=== PATIENT | male | born 1955 | race Caucasian/White ===

== ENCOUNTER 2018-02-17 02:20 | Inpatient (IN) ==
[2018-02-17] MEDS ORDERED: predniSONE 20 MG TABLET PO ONE (02:23)
[2018-02-17] MEDS ORDERED: Ipratropium/Albuterol Neb 3 ML IH ONE (02:23)
--- NOTE | 2018-02-17 02:26 | Emergency Department Note ---
Disposition Clinical Impression: Acute exacerbation of chronic obstructive airways disease Pneumonia Qualifiers: Pneumonia type: due to unspecified organism Laterality: bilateral Lung location : unspecified part of lung Qualified Code(s): J18.9 - Pneumonia, unspecified organism Disposition: Admitted As Inpatient Condition: Fair [facility]errals: [facility] [Non-Partnered Physician] - Forms: ED Satisfaction Letter Time of Disposition: 03:22 SOB HPI - General Chief Complaint: ED Shortness of Breath/Dyspnea Stated Complaint: difficulty in breathing Time Seen by Provider: 02/17/18 02:20 Source: patient Mode of arrival: ambulatory Limitations: no limitations Nursing Notes Reviewed: Yes Vital Signs Reviewed: Yes - History of Present Illness 62-year-old smoker arrives to the emergency department with acute shortness of breath. The patient states this started roughly 1 day ago and is progressively worsened. The family member and patient both state that he is unable to catch his breath at this time. The patient is in mild to moderate respiratory distress. He is 90% on 2 L nasal cannula and using accessory muscles. The patient is lucid and answering questions appropriate. He denies any chest pain. - Related Data Home Medications Medication Instructions Recorded Confirmed Albuterol Neb [Proventil Neb] 2.5 mg IH Q4HR 10/23/15 10/23/15 Albuterol Sulfate [Albuterol 1 - 2 puff IH Q6HR 10/23/15 10/23/15 Inhaler] Aspirin Enteric Coated [Aspirin EC] 81 mg PO DAILY 10/23/15 10/23/15 Atorvastatin [Lipitor] 40 mg PO DAILY 10/23/15 10/23/15 Cholecalciferol (Vitamin D3) 1,000 unit PO DAILY 10/23/15 10/23/15 [Vitamin D3] Gabapentin [Neurontin] 300 mg PO QID 10/23/15 10/23/15 Methocarbamol [Robaxin] 750 mg PO BID 10/23/15 10/23/15 Metoprolol XL (24 HR) Succ [Toprol 25 mg PO DAILY 10/23/15 10/23/15 Xl] Pantoprazole Sodium [Protonix] 40 mg PO DAILY 10/23/15 10/23/15 Prazosin HCl [Minipress] 2 mg PO TID 10/23/15 10/23/15 Sertraline [Zoloft] 100 mg PO DAILY 10/23/15 10/23/15 Tiotropium [Spiriva] 18 mcg IH DAILY 10/23/15 10/23/15 hydrOXYzine pamoate [HydrOXYzine 50 mg PO QID 10/23/15 10/23/15 Pamoate] Previous Rx's Medication Instructions Recorded Clopidogrel [Plavix] 75 mg PO DAILY #30 tablet 10/25/15 HYDROcodone/Acet 5/325 mg [[place] 1 tab PO Q6HR PRN #20 tablet 10/25/15 5-325 mg] Nicotine Patch [Nicoderm] 21 mg TD DAILY #60 patch.td24 MDD 1 10/25/15 Allergies Allergy/AdvReac Type Severity Reaction Status Date / Time morphine Allergy See Verified 09/27/15 14:41 Comments All systems ED: reviewed and negative except as stated. Constitutional: Denies: fever, chills, weakness ENT ED: Denies: dysphagia Cardiovascular: Reports: dyspnea on exertion. Denies: chest pain, edema, syncope Respiratory: Reports: dyspnea. Denies: cough, wheezes, sputum production Gastrointestinal: Denies: abdominal pain, nausea, vomiting Genitourinary: Denies: urgency, dysuria Musculoskeletal: Denies: back pain Integumentary: Denies: rash Neurological: Denies: headache Past Medical History - Past Medical History Attestation: Yes The following information was validated with the patient. Source: patient, old records reviewed Medical history: Reports: CHF, COPD, diabetes, hyperlipidemia, hypertension, myocardial infarction, peripheral artery disease Surgical history: Reports: LE Bypass, vascular surgery, other Psychiatric history: Reports: no psych history - Social History Smoking Status: Current every day smoker Smokeless Tobacco Status: No Alcohol use: Reports: none Drug use: Reports: none Physical Exam - General Limitations: no limitations General appearance: alert, in distress (Respiratory) - Head Head exam: atraumatic, normocephalic, normal inspection - Eye Eye exam: Present: normal appearance, PERRL, EOMI - ENT ENT exam: normal exam, normal oropharynx, mucous membranes moist - Neck Neck exam: Present: normal inspection, full ROM, trachea midline - Chest Chest inspection: Present: normal inspection, symmetric chest wall rise - Respiratory Respiratory exam: Present: other (Poor air movement in lung perez) - Cardiovascular Cardiovascular exam: Present: regular rate, normal rhythm, normal heart sounds - Extremities Exam Extremities exam: Present: normal inspection, full ROM. Absent: tenderness, pedal edema - Neurological Exam Neurological exam: Present: alert, oriented X3 - Skin Skin exam: Present: warm, dry, intact, normal color Course Vital Signs Temperature 98.7 F 02/17/18 02:23 Pulse Rate 108 02/17/18 02:23 Respiratory Rate 24 02/17/18 02:23 Blood Pressure 155/71 02/17/18 02:23 O2 Sat by Pulse Oximetry 91 02/17/18 02:23 Temperature 98.7 F 02/17/18 02:23 Pulse Rate 128 02/17/18 03:21 Respiratory Rate 28 02/17/18 03:21 Blood Pressure 122/79 02/17/18 03:21 O2 Sat by Pulse Oximetry 92 02/17/18 03:21 Oxygen Delivery Oxygen Delivery Aerosol Mask Shortness of Breath/Dyspnea - MDM Narrative Medical decision making narrative: Patient's work-up demonstrates findings consistent with COPD exacerbation as well as pneumonia daily required. The patient was administered azithromycin and rocephin. He was given 3 duonebs and 3 more albuterol nebs, steroids. The patient states he is feeling much better at this time. The patient is still having deep respirations but has continued to improve in the ED. The patient will be admitted to the ED at this time. No further questions at this time. Accepted by Dr. Wilson. - Lab Data Lab results reviewed: Yes I reviewed the patient's lab results. Result diagrams: 02/17/18 02:22 02/17/18 02:22 Lab Results 02/17/18 02/17/18 Range/Units 02:22 02:22 WBC 17.4 H (4.3-11.1) K/mcL RBC 4.55 (4.19-5.50) M/mcL Hgb 14.6 (12.9-16.9) g/dL Hct 42.1 (37.5-50.1) % MCV 92.5 (83.0-100.0) fL MCH 32.1 (28.0-33.3) pg MCHC 34.7 (31.6-35.5) g/dL RDW 12.2 (11.5-14.5) % Plt Count 256 (140-400) K/mcL MPV 9.0 L (9.4-12.4) fL Immature Gran % 0.2 (0-4) % Seg Neutrophils % 87.0 % Lymphocytes % 3.8 % Monocytes % 8.7 % Eosinophils % 0.1 % Basophils % 0.2 % Neutrophils # 15.1 H (1.6-8.9) K/mcL Lymphocytes # 0.7 (0.6-4.6) K/mcL Monocytes # 1.5 H (0.0-1.3) K/mcL Eosinophils # 0.0 (0.0-0.6) K/mcL Basophils # 0.0 (0.0-0.2) K/mcL Sodium 132 L (136-145) mEq/L Potassium 4.1 (3.5-5.1) mEq/L Chloride 98 (98-107) mEq/L Carbon Dioxide 26 (23-29) mEq/L BUN 11 (8-23) mg/dL Creatinine 0.81 (0.70-1.30) mg/dL Est GFR ( Amer) > 60 (> 60) Est GFR (Non-Af Amer) > 60 (> 60) BUN/Creatinine Ratio 14 (6-26) Glucose 145 H (70-105) mg/dL Calculated Osmolality 276 L (280-300) Calcium 9.2 (8.6-10.3) mg/dL Troponin I 0.03 (< 0.04) ng/mL - EKG Data EKG attestation: Yes I reviewed and interpreted this EKG. EKG results narrative: Heart rate 106 beats for minute. Sinus tachycardia. There is a intermittent QRS size change noted on rhythm strip. No ST elevation or ST depression noted. Concern for possible electrical alternans. Attestation Statement - Attestation Attestation: I, Nacho Miranda DO, examined this patient [id number] and my medical decision-making was reviewed with Holly Gregory DO, Resident Physician. I agree with the documented findings, disposition and treatment plan as described except to the extent set forth below. Please see my progress notes for details.
--- NOTE | 2018-02-17 02:39 | Emergency Department Note ---
Disposition Clinical Impression: Acute exacerbation of chronic obstructive airways disease Pneumonia Qualifiers: Pneumonia type: due to unspecified organism Laterality: bilateral Lung location : unspecified part of lung Qualified Code(s): J18.9 - Pneumonia, unspecified organism Disposition: Admitted As Inpatient Condition: Fair Time of Disposition: 03:53 General Adult HPI - General Chief complaint: ED Shortness of Breath/Dyspnea Stated complaint: difficulty in breathing Time Seen by Provider: 02/17/18 02:20 Source: patient Mode of arrival: ambulatory Limitations: no limitations - History of Present Illness Pain Scale: 0 - Related Data Home Medications Medication Instructions Recorded Confirmed Albuterol Neb [Proventil Neb] 2.5 mg IH Q4HR 10/23/15 10/23/15 Albuterol Sulfate [Albuterol 1 - 2 puff IH Q6HR 10/23/15 10/23/15 Inhaler] Aspirin Enteric Coated [Aspirin EC] 81 mg PO DAILY 10/23/15 10/23/15 Atorvastatin [Lipitor] 40 mg PO DAILY 10/23/15 10/23/15 Cholecalciferol (Vitamin D3) 1,000 unit PO DAILY 10/23/15 10/23/15 [Vitamin D3] Gabapentin [Neurontin] 300 mg PO QID 10/23/15 10/23/15 Methocarbamol [Robaxin] 750 mg PO BID 10/23/15 10/23/15 Metoprolol XL (24 HR) Succ [Toprol 25 mg PO DAILY 10/23/15 10/23/15 Xl] Pantoprazole Sodium [Protonix] 40 mg PO DAILY 10/23/15 10/23/15 Prazosin HCl [Minipress] 2 mg PO TID 10/23/15 10/23/15 Sertraline [Zoloft] 100 mg PO DAILY 10/23/15 10/23/15 Tiotropium [Spiriva] 18 mcg IH DAILY 10/23/15 10/23/15 hydrOXYzine pamoate [HydrOXYzine 50 mg PO QID 10/23/15 10/23/15 Pamoate] Previous Rx's Medication Instructions Recorded Clopidogrel [Plavix] 75 mg PO DAILY #30 tablet 10/25/15 HYDROcodone/Acet 5/325 mg [[place] 1 tab PO Q6HR PRN #20 tablet 10/25/15 5-325 mg] Nicotine Patch [Nicoderm] 21 mg TD DAILY #60 patch.td24 MDD 1 10/25/15 Allergies Allergy/AdvReac Type Severity Reaction Status Date / Time morphine Allergy See Verified 09/27/15 14:41 Comments Constitutional: Denies: fever, chills, weakness ENT ED: Denies: dysphagia Cardiovascular: Reports: dyspnea on exertion. Denies: chest pain, edema, syncope Respiratory: Reports: dyspnea. Denies: cough, wheezes, sputum production Gastrointestinal: Denies: abdominal pain, nausea, vomiting Genitourinary: Denies: urgency, dysuria Musculoskeletal: Denies: back pain Integumentary: Denies: rash Neurological: Denies: headache Past Medical History - Past Medical History Medical history: Reports: CHF, COPD, diabetes, hyperlipidemia, hypertension, myocardial infarction, peripheral artery disease Surgical history: Reports: LE Bypass, vascular surgery, other Psychiatric history: Reports: no psych history - Social History Smoking Status: Current every day smoker Smokeless Tobacco Status: No Alcohol use: Reports: none Drug use: Reports: none Physical Exam - General Limitations: no limitations General appearance: alert, in distress (Respiratory) Course Vital Signs Temperature 98.7 F 02/17/18 02:23 Pulse Rate 108 02/17/18 02:23 Respiratory Rate 24 02/17/18 02:23 Blood Pressure 155/71 02/17/18 02:23 O2 Sat by Pulse Oximetry 91 02/17/18 02:23 Temperature 98.7 F 02/17/18 02:23 Pulse Rate 128 02/17/18 03:21 Respiratory Rate 28 02/17/18 03:21 Blood Pressure 122/79 02/17/18 03:21 O2 Sat by Pulse Oximetry 92 02/17/18 03:21 Oxygen Delivery Oxygen Delivery Aerosol Mask Medical Decision Making - Lab Data Result diagrams: 02/17/18 02:22 02/17/18 02:22 Lab Results 02/17/18 02/17/18 Range/Units 02:22 02:22 WBC 17.4 H (4.3-11.1) K/mcL RBC 4.55 (4.19-5.50) M/mcL Hgb 14.6 (12.9-16.9) g/dL Hct 42.1 (37.5-50.1) % MCV 92.5 (83.0-100.0) fL MCH 32.1 (28.0-33.3) pg MCHC 34.7 (31.6-35.5) g/dL RDW 12.2 (11.5-14.5) % Plt Count 256 (140-400) K/mcL MPV 9.0 L (9.4-12.4) fL Immature Gran % 0.2 (0-4) % Seg Neutrophils % 87.0 % Lymphocytes % 3.8 % Monocytes % 8.7 % Eosinophils % 0.1 % Basophils % 0.2 % Neutrophils # 15.1 H (1.6-8.9) K/mcL Lymphocytes # 0.7 (0.6-4.6) K/mcL Monocytes # 1.5 H (0.0-1.3) K/mcL Eosinophils # 0.0 (0.0-0.6) K/mcL Basophils # 0.0 (0.0-0.2) K/mcL Sodium 132 L (136-145) mEq/L Potassium 4.1 (3.5-5.1) mEq/L Chloride 98 (98-107) mEq/L Carbon Dioxide 26 (23-29) mEq/L BUN 11 (8-23) mg/dL Creatinine 0.81 (0.70-1.30) mg/dL Est GFR ( Amer) > 60 (> 60) Est GFR (Non-Af Amer) > 60 (> 60) BUN/Creatinine Ratio 14 (6-26) Glucose 145 H (70-105) mg/dL Calculated Osmolality 276 L (280-300) Calcium 9.2 (8.6-10.3) mg/dL Troponin I 0.03 (< 0.04) ng/mL Attestation Statement - Attestation Attestation: I, Nacho Miranda DO, examined this patient [id number] and my medical decision-making was reviewed with Holly Gregory DO, Resident Physician. I agree with the documented findings, disposition and treatment plan as described except to the extent set forth below. Please see my progress notes for details. 61-year-old male presents emergency room for evaluation of shortness of breath. Her last 24 hours patient is been attempted to treat his breathing issues at home. He denies any specific history of COPD or emphysema. He typically has all his medical care provider at the [facility]. Currently is denying chest pain, fevers chills, nausea vomiting or diarrhea, headache or vision change. Denies any recent medication changes. He has not had any productive cough or sputum. Denies any fevers or chills. Patient is alert he has questions appropriately but he does appear to be in some significant respiratory distress. Patient is not moving very much air on initial presentation as pulse ox was 90% on 2 L of oxygen. He typically does not use oxygen at home. Immediately breathing treatments and steroids will be provided along with screening evaluation a chest x-ray EKG labs including CBC chemistry and troponin. Disposition will be determined once the full workup and treatment course have been completed. Patient may require admission secondary to the acute nature of the symptoms as well as the escalated presentation on arrival. His physical exam is otherwise unremarkable EKG shows sinus rhythm heart is regular with no murmurs lungs are significantly diminished with no audible wheezing. Abdomen is soft nontender nondistended with no guarding no rigidity no peritoneal symptoms. No signs of edema in the extremities. Patient does have a significant smoking history. Suspicion is this is COPD exacerbation with the weather changes. See detailed documentation of the physical exam, medical intervention, medical decision-making and disposition in the resident physician's note. No critical care provider the patient's treatment course at this time. [id number] Patient has negative chest x-ray for acute etiology outside the suspicion for pneumonia. Antibiotics and cultures were ordered. Repeat dosages of breathing treatments were given. Patient will be admitted. Hospitalist Dr. Wilson reviewed the case and no other recommendations or concerns. Patient is otherwise clinically stable. Completion of the treatment course will be established and resulted in the hospital setting.
[2018-02-17 02:41] LABS: Basophils % 0.2 %; Eosinophils % 0.1 %; Hematocrit 42.1 % (37.5-50.1); Hemoglobin 14.6 g/dL (12.9-16.9); Immature Granulocytes % 0.2 % (0-4); Lymphocytes # 0.7 K/mcL (0.6-4.6); Lymphocytes % 3.8 %; Mean Corpuscular HGB Conc 34.7 g/dL (31.6-35.5); Mean Corpuscular Hemoglobin 32.1 pg (28.0-33.3); Mean Corpuscular Volume 92.5 fL (83.0-100.0); Monocytes # 1.5 K/mcL (0.0-1.3); Monocytes % 8.7 %; Neutrophils # 15.1 K/mcL (1.6-8.9); Platelet Count 256 K/mcL (140-400); Red Blood Count 4.55 M/mcL (4.19-5.50); Red Cell Distribution Width 12.2 % (11.5-14.5)
[2018-02-17] MEDS ORDERED: Albuterol 2.5 MG/3 ML NEBULIZER IH ONE (02:57)
[2018-02-17] MEDS ORDERED: cefTRIAXone 1,000 MG in Water for inj. (sterile) 20 ML 10 ML IVP ONE (03:01)
[2018-02-17] MEDS ORDERED: Azithromycin 500 MG in D5% in Water 250 ML IVPB ONE (03:01)
[2018-02-17 03:02] LABS: BUN/Creatinine Ratio 14 (6-26); Blood Urea Nitrogen 11 mg/dL (8-23); Calcium 9.2 mg/dL (8.6-10.3); Carbon Dioxide 26 mEq/L (23-29); Chloride 98 mEq/L (98-107); Glucose 145 mg/dL (70-105); Osmolality,Calculated 276 (280-300); Potassium 4.1 mEq/L (3.5-5.1); Sodium 132 mEq/L (136-145); eGFR For Non-African Americans > 60 (> 60)
[2018-02-17 03:03] LABS: Troponin I 0.03 ng/mL (< 0.04)
[2018-02-17] MEDS ORDERED: Acetaminophen 325 MG TABLET PO PRN (03:59)
[2018-02-17] MEDS ORDERED: Naloxone 0.4 MG/ML INJ IVP PRN (03:59)
[2018-02-17] MEDS ORDERED: traMADol 50 MG TABLET PO PRN (03:59)
[2018-02-17] MEDS ORDERED: 0.9 % Sodium Chloride 1,000 ML IVC SCH ×2 (04:00→06:16)
[2018-02-17] MEDS: Ipratropium/Albuterol Neb 3 ML IH SCH ×4 (04:39→22:27)
[2018-02-17] MEDS: MethylPREDNISolone 40 MG/ML VIAL IVP SCH ×4 (05:08→23:04)
--- NOTE | 2018-02-17 05:53 | Internal Med History&Physical ---
Date of Encounter: 02/17/18 Time of Encounter: 05:47 Internal Medicine - H&P: HPI Chief complaint: Dyspnea History of present illness: Mr. Childs is a 62 year old male with past medical history of CHF, undocumented COPD, diabetes, hyperlipidemia, hypertension, [place] and peripheral artery disease who presented to the ED with a 2 day history of difficulty breathing. Patient states that 2 days ago he started having difficulty breathing described as inability to get air into his lungs. Symptoms are associated with episodes of fever and chills and a cough which became productive the following day with yellowish sputum. Patient has a significant smoking history of 30 pack years and reports that he used to be on home oxygen in the past but was eventually weaned off. He denies any sick contacts, chest pain, nausea, vomiting, diarrhea, or abdominal pain. Further denies any bilateral or unilateral lower extremity edema, orthopnea or paroxysmal nocturnal dyspnea. Patient denies any recent travel. Patient was given 3 rounds of DuoNeb's and 3 more albuterol nebs in addition steroids in the ED with improvement in his breathing. Chest x-ray showed diffuse prominence of interstitial markings reflecting possible edema, pneumonia or an atypical or viral pneumonia. Past Med Surg Social Fam HX - Past Medical History Medical history: CHF, COPD, diabetes, hyperlipidemia, hypertension, myocardial infarction, peripheral artery disease Psychiatric history: no psych history - Past Surgical History Surgical History: LE Bypass, vascular surgery, other Additional surgical history: THROMBECTOMY RLE - Social History Smoking Status: Current every day smoker Packs per day: 1 Smokeless Tobacco Status: No Alcohol use: none Drug use: none - Family History Mother Adopted: [place]: Christel Sullivan Living Status: Age at : 84 Cause of : CHF Hx Family Cardiac Disorders: Yes (CHF) Hx Family Respiratory Disorders: Yes (COPD) Father Adopted: [place]: Aftab Childs Living Status: Age at : 71 Cause of : CHF Hx Family Cardiac Disorders: Yes (CHF) Hx Family Respiratory Disorders: Yes (Emphysema) Internal Medicine - H&P: Meds Albuterol Neb [Proventil Neb] 2.5 mg IH Q4HR 10/23/15 [History] Albuterol Sulfate [Albuterol Inhaler] 1 - 2 puff IH Q6HR 10/23/15 [History] Aspirin Enteric Coated [Aspirin EC] 81 mg PO DAILY 10/23/15 [History] Atorvastatin [Lipitor] 40 mg PO DAILY 10/23/15 [History] Cholecalciferol (Vitamin D3) [Vitamin D3] 1,000 unit PO DAILY 10/23/15 [History] Gabapentin [Neurontin] 300 mg PO QID 10/23/15 [History] Methocarbamol [Robaxin] 750 mg PO BID 10/23/15 [History] Metoprolol XL (24 HR) Succ [Toprol Xl] 25 mg PO DAILY 10/23/15 [History] Pantoprazole Sodium [Protonix] 40 mg PO DAILY 10/23/15 [History] Prazosin HCl [Minipress] 2 mg PO TID 10/23/15 [History] Sertraline [Zoloft] 100 mg PO DAILY 10/23/15 [History] Tiotropium [Spiriva] 18 mcg IH DAILY 10/23/15 [History] hydrOXYzine pamoate [HydrOXYzine Pamoate] 50 mg PO QID 10/23/15 [History] Clopidogrel [Plavix] 75 mg PO DAILY #30 tablet 10/25/15 [Rx] HYDROcodone/Acet 5/325 mg [[place] 5-325 mg] 1 tab PO Q6HR PRN #20 tablet [Rx] Nicotine Patch [Nicoderm] 21 mg TD DAILY #60 patch.td24 MDD 1 10/25/15 [Rx] 3 Allergy/AdvReac Type Severity Reaction Status Date / Time morphine Allergy See Verified 09/27/15 14:41 Comments All Systems PM: A 10-system review of systems was performed and is negative for pertinent findings except as documented above in the HPI. - Constitutional Constitutional: no chills, no fever(s), no night sweats - EENT Eyes: no change in vision, no discharge, no pain, no photophobia Ears: no ear discharge, no ear pain, no tinnitus Nose, mouth and throat: no dysphagia, no nasal discharge, no neck pain, no sore throat - Cardiovascular Cardiovascular ROS IM: no chest pain, no diaphoresis, no dyspnea, no lightheadedness, no palpitations, no syncope - Respiratory Respiratory: no cough, no dyspnea, no wheezing, no excessive phlegm production - Gastrointestinal Gastrointestinal: no abdominal pain, no diarrhea, no hematemesis, no hematochezia, no melena, no nausea, no vomiting - Musculoskeletal Musculoskeletal ROS IM: no numbness, no tingling - Integumentary Integumentary IM: no rash, no unusual bruising - Neurological Neurological ROS: no confusion, no convulsions, no focal weakness, no numbness, no tingling, no tremor(s) - Hematologic/Lymphatic Hematologic/Lymphatic: no easy bruising - Constitutional Vitals: Temp Pulse Resp BP Pulse Ox 98.1 F 118 18 116/68 91 02/17/18 03:59 02/17/18 03:59 02/17/18 03:59 02/17/18 03:59 02/17/18 03:59 Exam: General: Alert and oriented 3. Lying in bed. Patient was asleep however was using accessory muscles to breathe. Was able to speak in complete sentences Skin:Normal color, no rash, no lesions. HEENT:EOM, pupils equal, round and reactive. Cardiovascular:Normal S1 & S2, no rubs, murmurs or gallops. No JVD. Pulse regular. Lungs: Diminished breath sounds throughout, no wheezes or crackles. Abdomen:Soft, non-tender, no rigidity. Extremities:No deformity, no edema or tenderness, no joint swelling or clubbing. Neurological:Normal cognition and motor skills. Pulses:Carotid and radial pulses normal +2. Rest of the physical exam is non contributory Internal Med - H&P Results - Labs CBC & Chem 7: 02/17/18 02:22 02/17/18 02:22 - Assessment and plan (1) Dyspnea Current Visit: Yes Status: Acute Assessment and plan: Patient presents with worsening dyspnea over the past 2 days associated with cough that is becoming more productive and fever and chills. Found to have an elevated white count on laboratory findings. Per ED patient was wheezing and had significant improvement after receiving breathing treatments in addition to steroids. Given his smoking history, though undocumented, patient may have an exacerbation of an underlying COPD secondary to pneumonia. Patient currently stable from a respiratory standpoint though I do not feel he is at baseline. Would recommend pulmonary consult in the morning. We will continue current breathing treatments and antibiotics, steroids. Qualifiers: Dyspnea type: acute respiratory distress Qualified Code(s): R06.03 - Acute respiratory distress (2) Pneumonia Current Visit: Yes Status: Acute Assessment and plan: Pneumonia likely community-acquired versus atypical with an elevated white blood cell count. Please see radiographic findings. Patient not currently septic. We will continue Rocephin and azithromycin. We will obtain sputum culture, Legionella and strep pneumo urinary antigen. Pulmonary consult Qualifiers: Pneumonia type: due to unspecified organism Laterality: bilateral Lung location: unspecified part of lung Qualified Code(s): J18.9 - Pneumonia, unspecified organism (3) History of CHF (congestive heart failure) Current Visit: No Status: Chronic Assessment and plan: Reported history of congestive heart failure however there is no echocardiogram in his records to verify the diagnosis or type. At this time the patient does not seem volume overloaded. We will monitor. Resume home medications once verified. (4) Diabetes Current Visit: Yes Status: Acute Assessment and plan: Reported history of diabetes. We will start patient on sliding scale insulin with blood glucose checks Qualifiers: Diabetes mellitus type: type 2 Qualified Code(s): E11.9 - Type 2 diabetes mellitus without complications (5) Hyponatremia Current Visit: Yes Status: Acute Assessment and plan: Mild hyponatremia. To administer normal saline. We will reassess in the morning. (6) Peripheral vascular disease Current Visit: Yes Status: Acute Assessment and plan: Patient reports he is on aspirin and Plavix, however cannot verify his dose of Plavix. We will resume once we have the correct dose. - Time Spent With Patient Total time spent is greater than 50% in coordination of care (as documented) at patient's floor/unit and/or counseling patient:
[2018-02-17] MEDS ORDERED: *HR* Dextrose 50 % in Water (Syg) 50 ML SYRINGE IVP PRN (06:04)
[2018-02-17] MEDS ORDERED: Dextrose Gel 15 GM/37.5 ML TUBE PO PRN ×2 (06:04)
[2018-02-17] MEDS ORDERED: D5% in Water 1,000 ML IVC PRN (06:04)
[2018-02-17] MEDS ORDERED: Insulin LISPRO 300 UNITS/3 ML VIAL SQ SCH ×2 (06:15→21:00)
[2018-02-17 07:23] LABS: Hematocrit 38.3 % (37.5-50.1); Mean Corpuscular HGB Conc 33.4 g/dL (31.6-35.5); Mean Corpuscular Hemoglobin 31.1 pg (28.0-33.3); Mean Corpuscular Volume 93.2 fL (83.0-100.0); Mean Platelet Volume 9.1 fL (9.4-12.4); Platelet Count 235 K/mcL (140-400); Red Blood Count 4.11 M/mcL (4.19-5.50); Red Cell Distribution Width 12.2 % (11.5-14.5)
[2018-02-17 07:29] LABS: Hemoglobin 12.8 g/dL (12.9-16.9)
[2018-02-17 07:43] LABS: Alanine Aminotransferase 86 Units/L (7-52); Albumin 3.5 g/dL (3.5-5.7); Albumin/Globulin Ratio 1.3 (1.1-2.2); Alkaline Phosphatase 168 Units/L (34-104); Aspartate Amino Transferase 79 Units/L (13-39); BUN/Creatinine Ratio 12 (6-26); Bilirubin,Total 0.4 mg/dL (0.3-1.0); Blood Urea Nitrogen 10 mg/dL (8-23); Calcium 8.7 mg/dL (8.6-10.3); Carbon Dioxide 25 mEq/L (23-29); Chloride 100 mEq/L (98-107); Globulin 2.6 g/dL (2.4-3.5); Glucose 197 mg/dL (70-105); Osmolality,Calculated 279 (280-300); Potassium 3.5 mEq/L (3.5-5.1); Sodium 132 mEq/L (136-145); Total Protein 6.1 g/dL (6.4-8.9); eGFR For Non-African Americans > 60 (> 60)
[2018-02-17] MEDS: Nicotine 21 MG PATCH.TD24 TD SCH (09:05)
[2018-02-17] MEDS: Aspirin 81 MG TAB.CHEW PO SCH (09:05)
[2018-02-17] MEDS: Insulin LISPRO 300 UNITS/3 ML VIAL SQ SCH ×3 (09:08→17:50)
--- NOTE | 2018-02-17 14:57 | Event Note ---
Date of Encounter: 02/17/18 Time of Encounter: 14:52 See full note by my colleague from earlier today for details. - AECOPD: Dyspnea improved but not to baseline. Cough with dark yellow phlegm. No chest pain or dizziness. Cont steroid/Abx/nebs. Cont O2/NC, when improves, assess ambulatory pulse ox. - Patient refused tele (some PACs and short run of SVT only). Will resume metoprolol today, amlodipine tomorrow. DC IVF. - PAD: reports procedure on leg, and hence on Plavix. Resume ASA + Plavix.
[2018-02-17] MEDS: Metoprolol XL (24 HR) Succ 25 MG TAB.ER.24H PO SCH (15:42)
[2018-02-17] MEDS: *HR* OxyCODONE/APAP 10/325 TABLET PO PRN ×2 (15:42→23:14)
[2018-02-17 16:26] LABS: Estimated Average Glucose 108 mg/dl; Hemoglobin A1C 5.4 %
[2018-02-17] MEDS: Menthol 9.1 MG LOZENGE PO PRN (23:30)
[2018-02-18] MEDS: Menthol 9.1 MG LOZENGE PO PRN ×2 (03:49→08:32)
[2018-02-18] MEDS: Ipratropium/Albuterol Neb 3 ML IH SCH (04:39)
[2018-02-18] MEDS: MethylPREDNISolone 40 MG/ML VIAL IVP SCH (04:56)
[2018-02-18 06:02] LABS: Hematocrit 39.1 % (37.5-50.1); Hemoglobin 13.2 g/dL (12.9-16.9); Mean Corpuscular HGB Conc 33.8 g/dL (31.6-35.5); Mean Corpuscular Hemoglobin 32.3 pg (28.0-33.3); Mean Corpuscular Volume 95.6 fL (83.0-100.0); Mean Platelet Volume 9.3 fL (9.4-12.4); Platelet Count 260 K/mcL (140-400); Red Blood Count 4.09 M/mcL (4.19-5.50); Red Cell Distribution Width 12.1 % (11.5-14.5)
[2018-02-18] MEDS: *HR* OxyCODONE/APAP 10/325 TABLET PO PRN (06:08)
[2018-02-18 07:04] LABS: BUN/Creatinine Ratio 23 (6-26); Blood Urea Nitrogen 18 mg/dL (8-23); Calcium 9.1 mg/dL (8.6-10.3); Carbon Dioxide 26 mEq/L (23-29); Chloride 101 mEq/L (98-107); Glucose 149 mg/dL (70-105); Magnesium 2.1 mg/dL (1.6-2.6); Osmolality,Calculated 281 (280-300); Potassium 4.6 mEq/L (3.5-5.1); Sodium 133 mEq/L (136-145); eGFR For Non-African Americans > 60 (> 60)
[2018-02-18 07:45] VITALS: BP 144/76
[2018-02-18] MEDS: Insulin LISPRO 300 UNITS/3 ML VIAL SQ SCH (08:28)
[2018-02-18] MEDS: Metoprolol XL (24 HR) Succ 25 MG TAB.ER.24H PO SCH (08:30)
[2018-02-18] MEDS: Aspirin 81 MG TAB.CHEW PO SCH (08:30)
[2018-02-18] MEDS: Nicotine 21 MG PATCH.TD24 TD SCH (08:34)
[2018-02-18] MEDS ORDERED: Metoprolol XL (24 HR) Succ 25 MG TAB.ER.24H PO SCH (09:00)
[2018-02-18] MEDS ORDERED: cefTRIAXone 1,000 MG in Water for inj. (sterile) 20 ML 10 ML IVP SCH (09:00)
[2018-02-18] MEDS ORDERED: Azithromycin 250 MG TABLET PO SCH (09:00)
[2018-02-18] MEDS ORDERED: amLODIPine 5 MG TABLET PO SCH (09:00)
--- NOTE | 2018-02-18 18:26 | Electrocardiograph Report ---
[address] [address] Test Date: 2018-02-17 Pat Name: Von Childs Department: EXAM21 Room: 3B66 Gender: M Rivet Passer: : 1955 Requested By: Sage Gregory Order Number: [id number] Reading MD: Joe Gan Measurements Intervals [place] Rate: 106 P: 89 [place]: 143 QRS: 79 QRSD: 93 T: 67 QT: 337 QTc: 448 Interpretive Statements Sinus tachycardia Biatrial enlargement Electronically Signed On 02-18-2018 18:24:56 EDT by Joe Gan
--- NOTE | 2018-02-18 18:54 | Event Note ---
Date of Encounter: 02/18/18 Time of Encounter: 18:53 Pt not seen he left AMA and was goe prior to my arrival to the floor.
== END 2018-02-18 09:05 | disposition left against medical advice (07) | DRG 190 ==
LOC: EMEROOARM 02:20 → 3BNU 02:20
PROVIDERS: ADMIT Pediatrics; ATTEND Pediatrics